=== PATIENT | male | born 1990 | race Caucasian/White ===

== ENCOUNTER 2021-08-21 07:29 | Emergency (ER) | payer OTHER ==
[~2021-08-21] VITALS: Ht 182.9 cm; Wt 84.1 kg
[2021-08-21 08:07] VITALS: BP 125/83
[2021-08-21] MEDS ORDERED: KEN0.1O TP (10:47)
[2021-08-21] MEDS ORDERED: PRED10TA PO (10:47)
[2021-08-21] MEDS ORDERED: triamcinolone acetonide 40mg/ml inj IM ONE (10:50)
== END 2021-08-21 11:06 | disposition home or self-care (01) ==
LOC: ER 07:29
DX: L23.7 Allergic contact dermatitis due to plants, except food (principal); E11.9 Type 2 diabetes mellitus without complications; F12.90 Cannabis use, unspecified, uncomplicated; Z72.89 Other problems related to lifestyle; Z79.899 Other long term (current) drug therapy
CPT/HCPCS: 96372; 99283; J3301